=== PATIENT | female | born 1980 | race Caucasian/White ===

== ENCOUNTER 2025-01-07 18:02 | Emergency (ER) | payer OTHER ==
--- OUTSIDE RECORDS SUMMARY | 2025-01-07 18:27 | XMS REPORT | Continuity of Care Document ---
Author Name Unknown Address [address] [place] [address] [facility] Address [address] [place] [address] Care Team Providers Care Financial Writer Name Role Phone Hopmike Dianna STILL Primary Care Physician [phone] RUBI FELICIANO Attending Clinician Unavailable Rubi Guzman Attending Clinician [phone] Payers Payer Name Policy Type Policy Number Effective Date Expirati on Date Source Allergies, Adverse Reactions, Alerts Allergy Name Allergy Type Status Severity Reaction(s) Onset Date Inactive Date Treating Clinician Comments Source NO KNOWN ALLERGIE S Drug Class Active [facility] Social History Social Habit Start Date Stop Date Quantity Comments Source ASSERTION Possible [facility] intake 2025-01-06 00:00:00 2025-01-06 00:00:00 Ex-drinker (finding) [facility] History of Social function 2025-01-06 00:00:00 2025-01-06 00:00:00 [facility] Sex assigned at 1980 00:00:00 1980 00:00:00 [facility] Smoking Status Start Date Stop Date Source Never smoked tobacco [facility] Medications Ordered Medication Name Filled Medication Name Start Date Stop Date Current Medication? Ordering Clinician Indication Dosage Frequency Signature (SIG) Comments Components Source ZOLMitripta n 5 mg tablet 01-06 09:49: 46 Yes 5mg Take 1 tablet by mouth as needed for Migraine. [facility] clonazePAM 0.5 mg tablet 01-06 09:18: 50 Yes .5mg Take 1 tablet by mouth. [facility] FLUoxetine 20 mg capsule 01-06 09:18: 50 Yes 40mg Take 2 capsules by mouth at bedtime. [facility] levothyroxi ne 200 mcg tablet 01-06 09:18: 50 Yes 200ug Take 1 tablet by mouth. [facility] liothyronin e 25 mcg tablet 01-06 09:18: 50 Yes 25ug Take 1 tablet by mouth. [facility] zolpidem 12.5 mg CR tablet 01-06 09:18: 50 Yes 10mg Take 10 mg by mouth. [facility] progesteron e 200 mg capsule 01-06 09:18: 50 Yes 200mg Take 1 capsule by mouth. [facility] proMETHazin e 12.5 mg tablet 01-06 00:00: 00 Yes [id number] 12.5mg Take 1 tablet by mouth every 4 hours as needed for Nausea and Vomiting (N/V). [facility] magnesium oxide 400 mg magnesium Tab 01-06 00:00: 00 Yes [id number] 400mg Take 400 mg by mouth at bedtime. [facility] Vital Signs Vital Name Observation Time Observation Value Comments S ource Systolic blood pressure 2025-01-06 14:11:00 120 mm[Hg] [facility] Diastolic blood pressure 2025-01-06 14:11:00 78 mm[Hg] [facility] Heart rate 2025-01-06 14:11:00 106 /min [facility] Body height 2025-01-06 14:11:00 160 cm [facility] Body weight 2025-01-06 14:11:00 90.311 kg [facility] BMI 2025-01-06 14:11:00 35.27 kg/m2 [facility] Oxygen saturation in Arterial blood by Pulse oximetry 2025-01-06 14:11:00 96 /min [facility] Encounters Start Date/Time End Date/Time Encounter Type Admission Type Attending [facility] Facility Care Department Encounter ID Source 2025-01-07 00:00:00 2025-01-07 08:13:46 Telephone Rubi Feliciano [facility] [id number] [facility] 2025-01-06 09:00:00 2025-01-06 10:04:58 Office Visit R Rubi Feliciano [facility] [id number] [facility] Notes Date/Time Note Provider Source 2025-01-07 08:13:25 Forms have been re-faxed. Lissett Love RN [facility] 2025-01-07 07:52:37 Received fax from [employer] with forms to be completed. Documents have been uploaded to the patients media file and placed in prov folder for prov to review, complete and faxed back to . Jesika Alvarado [facility]
[2025-01-07] MEDS ORDERED: ONDANSETRON 4 MG (ODT) TAB ONE (18:28)
[2025-01-07] MEDS ORDERED: ACETAMINOPHEN 500 MG TAB ONE (18:28)
[2025-01-07 19:04] LABS: Influenza A Ag Negative; Influenza B Ag Negative; SARS-CoV-2 Antigen Rapid Res Negative (Negative)
--- NOTE | 2025-01-07 19:06 | RAD REPORT ---
EXAM: Chest Pa And Lat (2 Views) HISTORY: 44 years Female COUGH COMPARISON: No prior exams FINDINGS: LUNGS/PLEURA: The lungs are clear. No pleural effusions or pneumothorax. No pulmonary edema. CARDIAC/MEDIASTINUM: The cardiac silhouette is within normal limits. UPPER ABDOMEN: No significant abnormality. BONES: No acute abnormality. LINES/TUBES/OTHER: N/A IMPRESSION: No evidence of acute cardiopulmonary disease.
--- NOTE | 2025-01-07 19:25 | EDPHYS ---
Physician Documentation [facility] Name: Kelley Flores Age: 44 yrs Sex: Female : 1980 Arrival Date: 01/07/2025 Time: 18:02 Bed 13 Private MD: ED Physician Zhen Hays HPI: 01/07 18:25 This 44 yrs old Female presents to ER via Ambulatory with complaints of Fever, Chest cp Heaviness, Sore Throat. 18:25 The patient reports fever, not measured (subjective). cp 18:25 Onset: The symptoms/episode began/occurred yesterday. Associated signs and symptoms: cp Pertinent positives: cough, headache, nausea, sore throat, body aches, Pertinent negatives: diarrhea, vomiting. Patient reports that her son tested positive for COVID-19 yesterday. 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 - Infectious Disease History:: Denies. - Social history:: Smoking status: Patient denies any tobacco usage or history of. ROS: 18:30 Constitutional: Positive for body aches, chills, fever, cp 18:30 Eyes: Negative for injury, pain, redness, and discharge, cp 18:30 ENT: Positive for sore throat, Negative for ear pain, difficulty swallowing, difficulty handling secretions, 18:30 Cardiovascular: Negative for chest pain, edema, 18:30 Respiratory: Positive for cough, Negative for wheezing, 18:30 Abdomen/GI: Positive for nausea, Negative for abdominal pain, vomiting, diarrhea, constipation, 18:30 Skin: Negative for rash, 18:30 Neuro: Positive for headache, Negative for altered mental status, 18:30 All other systems are negative, cp Exam: 18:40 Constitutional: The patient appears in no acute distress, alert, awake, non-toxic, well cp developed, well nourished, appears ill 18:40 Head/Face: Normocephalic, atraumatic. cp 18:40 Eyes: Periorbital structures: appear normal, Conjunctiva: normal, no exudate, no injection, Sclera: no appreciated abnormality, Lids and lashes: appear normal, bilaterally, 18:40 ENT: External ear(s): are unremarkable, Ear canal(s): are normal, clear, TM's: dullness, bilaterally, Nose: is normal, Mouth: Lips: moist, Oral mucosa: moist, Posterior pharynx: Airway: no evidence of obstruction, patent, Uvula: midline, erythema, that is moderate, exudate, is not appreciated, 18:40 Neck: ROM/movement: Meningeal signs: are not present, nuchal rigidity, is not appreciated, 18:40 Chest/axilla: Inspection: normal, 18:40 Cardiovascular: Rate: tachycardic, Edema: is not appreciated, JVD: is not appreciated, 18:40 Respiratory: the patient does not display signs of respiratory distress, Respirations: labored breathing, is not present, intercostal retractions, are absent, Breath sounds: decreased breath sounds, are not appreciated, stridor, is not appreciated, wheezing: is not appreciated, 18:40 Abdomen/GI: Exam negative for discomfort, distension, guarding, Inspection: abdomen appears normal, Vital Signs: 18:11 BP 120 / 81; Pulse 117; Resp 20; Temp 99.9; Pulse Ox 97% ; Weight 90.72 kg; Height 5 me1 ft. 3 in. ; Pain 7/10; 19:20 BP 109 / 68; Pulse 95; Resp 20; Temp 99.5(O); Pulse Ox 93% on R/A; kd4 19:45 Pain 0/10; kd4 18:11 Body Mass Index 35.43 (90.72 kg, 160.02 cm) me1 18:11 Pain Scale: Adult me1 19:45 Pain Scale: Adult kd4 MDM: 18:11 Medical Screening Exam initiated cp 19:25 Data reviewed: vital signs, nurses notes, lab test result(s), radiologic studies, plain cp films, and as a result, I will discharge patient. 19:25 Differential diagnosis: viral Infection, bacterial infection, URI, bronchitis, cp pneumonia. Independent interpretation of the following test(s) in the Emergency Department X-Ray: My interpretation is images of chest negative for focal pneumonia. Care significantly affected by the following chronic conditions: RA. Counseling: I had a detailed discussion with the patient and/or guardian regarding the historical points, exam findings, and any diagnostic results supporting the discharge/admit diagnosis, lab results, radiology results, to return to the emergency department if symptoms worsen or persist or if there are any questions or concerns that arise at home. 01/07 18:18 Order name: COVID-19 Ag + Flu A+B Ag; Complete Time: 19:08 cp 01/07 19:08 Interpretation: Reviewed. 01/07 18:18 Order name: Group A Streptococcus Rapid; Complete Time: 19:08 cp 01/07 19:08 Interpretation: Reviewed. 01/07 18:57 Order name: Throat Culture EDMS 01/07 18:18 Order name: XRAY Chest Pa And Lat (2 Views); Complete Time: 19:08 cp 01/07 19:08 Interpretation: Report reviewed. 01/07 19:08 Order name: PO challenge; Complete Time: 19:45 cp 01/07 19:10 Order name: VS Recheck; Complete Time: 19:22 cp Administered Medications: 18:36 Drug: Ondansetron PO 4 mg PO once Route: PO; rg5 19:25 Follow up: Response: No adverse reaction rg5 19:38 Follow up: Response: No adverse reaction kd4 18:37 Drug: Acetaminophen PO 1000 mg PO once Route: PO; rg5 19:25 Follow up: Response: No adverse reaction; Pain is decreased rg5 Disposition Summary: 01/07/25 19:25 Discharge Ordered Notes: Location: Home cp Problem: new cp Symptoms: have improved cp Condition: Stable cp Diagnosis - Cough cp - Acute pharyngitis, unspecified cp - Nausea cp Followup: cp - With: Private Physician - When: 2 - 3 days - Reason: Worsening of condition Discharge Instructions: - Discharge Summary Sheet cp - Nausea, Adult cp - Pharyngitis cp - Sore Throat cp - Aspirin and Your Heart cp - Cough, Adult cp - COVID-19 cp - 10 Things You Can Do to Manage Your COVID-19 Symptoms at Home - [facility] (12/01/2020) cp Forms: - Medication Reconciliation Form cp - Antibiotic Education cp - Prescription Opioid Use cp - Patient Portal Instructions cp - Leadership Thank You Letter cp Prescriptions: - Bromfed DM 2-30-10 mg/5 mL Oral syrup - administer 10 milliliter ORAL route every 8 hours as needed for allergy cp symptoms; 240 milliliter; Refills: 0, Product Selection Permitted - Paxlovid 300 mg (150 mg x 2)-100 mg Oral Tablet, Dose Pack - take 1 dose pack ORAL route as directed on dose pack take TWO 150 mg tablets of cp nirmatrelvir with ONE 100 mg tablet of ritonavir twice daily for 5 days; 30 tablet; Refills: 0, Product Selection Permitted - Zofran 4 mg Oral tablet - take 1 tablet ORAL route every 8 hours As needed; 20 tablet; Refills: 0, cp Product Selection Permitted Signatures: Dispatcher [employer] EDMS Peyman Vinson, PA-C PA-C Sarah Garg, RN RN me1 Micah Rose RN RN rg5 Iván Baldwin RN kd4 Corrections: (The following items were deleted from the chart) 18:19 18:19 Chest Pa And Lat (2 Views)+[email or web address].[email or web address] ordered. EDNV EDMS
--- NOTE | 2025-01-07 19:25 | ER ---
Nurse's Notes [facility] Name: Kelley Flores Age: 44 yrs Sex: Female : 1980 Arrival Date: 01/07/2025 Time: 18:02 Bed 13 Private MD: Diagnosis: Cough;Acute pharyngitis, unspecified;Nausea Presentation: 01/07 18:11 Chief complaint: Patient states: fever, chills, nausea, cough, congestion, chest me1 heaviness, sore throat and body aches that started yesterday. Son was positive for covid yesterday. c/o SOB with hx of asthma. Coronavirus screen: Vaccine status: Patient reports being unvaccinated. Ebola Screen: No symptoms or risks identified at this time. Initial Sepsis Screen: Does the patient meet any 2 criteria? HR > 90 bpm. Does the patient have a suspected source of infection? No. Patient's initial sepsis screen is negative. Risk Assessment: Do you want to hurt yourself or someone else? Patient reports no desire to harm self or others. Onset of symptoms was January 06, 2025. 18:11 Method Of Arrival: Ambulatory [facility] 18:11 Acuity: NICK 4 me1 Triage Assessment: 19:44 General: Behavior is calm, cooperative. Pain: Denies pain. Neuro:. Neuro: No deficits kd4 noted. 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 - Infectious Disease History:: Denies. - Social history:: Smoking status: Patient denies any tobacco usage or history of. Screenin:20 [facility] ED Fall Risk Assessment (Adult) History of falling in the last 3 months, rg5 including since admission No falls in past 3 months (0 pts) Confusion or Disorientation No (0 pts) Intoxicated or Sedated No (0 pts) Impaired Gait No (0 pts) Mobility Assist Device Used No (0 pt) Altered Elimination No (0 pt) Score/Fall Risk Level 0 - 2 = Low Risk Oriented to surroundings, Maintained a safe environment. Abuse screen: Denies threats or abuse. Nutritional screening: No deficits noted. Tuberculosis screening: No symptoms or risk factors identified. Assessment: 18:20 General: Appears Reports fever for 12-24 hours, feeling ill for 12-24 hours. Pain: rg5 Complains of pain in left aspect of posterior pharynx and right aspect of posterior pharynx Quality of pain is described as aching. Neuro: Level of Consciousness is awake, alert, obeys commands, Oriented to person, place, time, situation. Cardiovascular: Patient's skin is warm and dry. Respiratory: Reports cough that is Airway is patent Respiratory effort is even, unlabored, Breath sounds are clear. GI: Abdomen is round non-distended. EENT: Throat is reddened Reports pain. Derm: Skin is intact, Skin is normal. 18:20 Musculoskeletal: Circulation, motion, and sensation intact. Range of motion: intact in rg5 all extremities. 19:46 General: Patient tolerates PO challenge, d/c instruction provided .Prescription given kd4 to patient.. Vital Signs: 18:11 BP 120 / 81; Pulse 117; Resp 20; Temp 99.9; Pulse Ox 97% ; Weight 90.72 kg; Height 5 me1 ft. 3 in. ; Pain 7/10; 19:20 BP 109 / 68; Pulse 95; Resp 20; Temp 99.5(O); Pulse Ox 93% on R/A; kd4 19:45 Pain 0/10; kd4 18:11 Body Mass Index 35.43 (90.72 kg, 160.02 cm) me1 18:11 Pain Scale: Adult me1 19:45 Pain Scale: Adult kd4 ED Course: 18:07 Patient arrived in ED. cj3 18:07 Peyman Vinson PA-C is PHCP. cp 18:07 Zhen Hays MD is Attending Physician. cp 18:15 Triage completed. me1 18:15 Arm band placed on Patient placed in an exam room. me1 18:20 Patient has correct armband on for positive identification. Door closed. Noise rg5 minimized. 18:20 No provider procedures requiring assistance completed. Patient did not have IV access rg5 during this emergency room visit. 18:23 Micah Rose, RN is Primary Nurse. rg5 18:50 XRAY Chest Pa And Lat (2 Views) In Process Unspecified. EDMS 19:45 Provided Education on: D/C instruction. kd4 Administered Medications: 18:36 Drug: Ondansetron PO 4 mg PO once Route: PO; rg5 19:25 Follow up: Response: No adverse reaction rg5 19:38 Follow up: Response: No adverse reaction kd4 18:37 Drug: Acetaminophen PO 1000 mg PO once Route: PO; rg5 19:25 Follow up: Response: No adverse reaction; Pain is decreased rg5 Medication: 18:20 VIS not applicable for this client. rg5 Outcome: 19:25 Discharge ordered by MD. cp 19:44 Discharged to home ambulatory, kd4 19:44 Condition: stable 19:44 Discharge instructions given to patient, Instructed on discharge instructions, follow up and referral plans. Demonstrated understanding of instructions, Prescriptions given X 3, 19:47 Patient left the ED. kd4 Signatures: Dispatcher [employer] EDME Peyman Vinson, RACHEL-C PA-C Sarah Garg, RN RN sc1 Iván Baldwin RN RN kd4 Micah Rose RN RN rg5 Edel Burrell 3
[2025-01-07 20:46] VITALS: BP 109/68; TEMP 99.5; O2SAT 93
== END 2025-01-07 19:47 | disposition home or self-care (01) ==
LOC: ER 18:02
DX: R05.9 Cough, unspecified (principal); J02.9 Acute pharyngitis, unspecified; R11.0 Nausea; Z11.52 Encounter for screening for COVID-19
CPT/HCPCS: 87070; 36415; 71046; 99283; 87428; Q0162